=== PATIENT | female | born 1935 | race African-American/Black ===

== ENCOUNTER 2024-04-04 14:29 | Inpatient (IN) | payer OTHER, MEDICARE ==
[~2024-04-04] VITALS: Ht 166.6 cm; Wt 85.7 kg
[2024-04-04] MEDS: METHYLPREDNISOLONE SOD SUCC 125MG/2ML (ACT-O-VIAL) IV STA (15:26)
[2024-04-04] MEDS: SODIUM CHLORIDE 0.9% (SEPSIS BOLUS) IV ONE (15:27)
[2024-04-04] MEDS: PIPERACILLIN/TAZO 3.375G/50ML 50 ML IV STA (15:33)
[2024-04-04 15:50] LABS: HEMOGLOBIN. 11.2 g/dL (12.0-16.0); MEAN CORPUSCULAR HEMOGLOBIN 27.2 pg (28.0-32.0); MEAN CORPUSCULAR HGB CONC 31.9 g/dL (31.0-37.0); MEAN CORPUSCULAR VOLUME 85.5 fL (81.0-99.0); PLATELET 213 x1000/uL (130-400); RED CELL DISTRIBUTION WIDTH 14.6 % (11.6-14.6); WHITE BLOOD COUNT 13.7 x1000/uL (4.5-11.0)
[2024-04-04 15:51] LABS: D-DIMER 2.54 mg/L FEU (<0.50); INR 0.9; PROTHROMBIN TIME 10.6 sec (9.6-11.0)
[2024-04-04 15:53] LABS: CHLORIDE 101 mEq/L (98-107); POTASSIUM 4.7 mEq/L (3.5-5.1); SODIUM 136 mEq/L (136-145)
[2024-04-04 15:54] LABS: CALCIUM 9.9 mg/dL (8.7-10.4); CARBON DIOXIDE 20 mEq/L (21-32); DIFFERENTIAL COMMENT 1
[2024-04-04 15:59] LABS: CREATININE 1.9 mg/dL (0.6-1.0); UREA NITROGEN BLOOD 59 mg/dL (9-23)
[2024-04-04 16:01] LABS: ALANINE AMINOTRANSFERASE 14 IU/L (10-49); ALBUMIN 3.9 g/dL (3.2-4.8); ASPARTATE AMINOTRANSFERASE 15 IU/L (<34); BILIRUBIN DIRECT 0.3 mg/dL (<=3.0); BILIRUBIN TOTAL 0.6 mg/dL (0.1-1.0); LACTIC ACID 2.6 mmol/L (0.4-2.0); PROTEIN TOTAL 7.4 g/dL (6.0-8.3); TROPONIN I HIGH SENSITIVITY 26 ng/L (3.0-34)
[2024-04-04 16:16] LABS: GLUCOSE 675 mg/dL (70-105)
[2024-04-04 16:35] VITALS: PULSE 107; RESP 24; O2SAT 97
[2024-04-04 17:29] LABS: BG SAMPLE SITE RIGHT RADIAL; BG VENT MODE NASAL CANNULA
[2024-04-04 17:30] LABS: BG BASE EXCESS -6.6 mmol/L (-2.0-3.0); BG CARBOXYHEMOGLOBIN 0.4 % (0.5-1.5); BG FRACTION INSPIRED OXYGEN 28; BG HCO3 ACT 18.3 mmol/L (21.0-28.0); BG METHEMOGLOBIN 0.3 % (0.5-1.5); BG OXYHEMOGLOBIN 94.3 % (94.0-98.0); BG PCO2 34.6 mmHg (32.0-45.0); BG PH 7.341 (7.350-7.450); BG PO2 81.9 mmHg (83.0-108.0); BG TOTAL HEMOGLOBIN 11.8 g/dL (12.0-16.0)
[2024-04-04] MEDS: INSULIN LISPRO 100 UNITS/ML SUBCUT STA (18:12)
[2024-04-04] MEDS ORDERED: DEXTROSE 50% WATER 50ML SYRINGE IV PRN (18:15)
[2024-04-04] MEDS: VANCOMYCIN 1.5GM/250ML 250 ML IV SCH (18:33)
[2024-04-04 19:09] LABS: TROPONIN I HIGH SENSITIVITY 30 ng/L (3.0-34)
[2024-04-04 21:02] LABS: PLATELET ESTIMATE NORMAL
[2024-04-04] MEDS: BLOOD SUGAR DIAGNOSTIC STRIP TEST SCH (21:14)
[2024-04-04] MEDS: INSULIN LISPRO 100 UNITS/ML SUBCUT NR (21:29)
[2024-04-04] MEDS: PANTOPRAZOLE SODIUM 40 MG/VIAL IV SCH (23:00)
[2024-04-04] MEDS: ENOXAPARIN 30MG/0.3ML SYR SUBCUT SCH (23:02)
[2024-04-04] MEDS ORDERED: DEXTROSE 50% WATER 25ML (12.5GM) IV PRN (23:15)
[2024-04-04] MEDS ORDERED: DEXTROSE 50% WATER 50ML (25GM) IV PRN (23:15)
[2024-04-04] MEDS: INSULIN REGULAR 100U/100ML PMX 100 ML IV SCH (23:32)
[2024-04-04 23:53] LABS: CLARITY URINE CLEAR (CLEAR); COLOR URINE YELLOW (YELLOW); GLUCOSE URINE 3+ (NEGATIVE); KETONES URINE TRACE (NEGATIVE); LEUKOCYTE ESTERASE URINE NEGATIVE (NEGATIVE); NITRITE URINE NEGATIVE (NEGATIVE); OCCULT BLOOD URINE TRACE (NEGATIVE); PROTEIN URINE NEGATIVE (NEGATIVE); SPECIFIC GRAVITY URINE 1.035 (1.005-1.030); UROBILINOGEN URINE 0.2 E.U./dL (0.2-1.0)
[2024-04-04] MEDS ORDERED: IOHEXOL-350 100 ML BOTTLE ONE (23:55)
[2024-04-04] MEDS: PIPERACILLIN/TAZO 3.375G/50ML 50 ML IV SCH (23:56)
[2024-04-05] VITALS (47 sets, daily range): BP systolic 116–162; BP diastolic 52–77; PULSE 87–113; RESP 19–31; TEMP 36.61404–37.2252; O2SAT 92–100
[2024-04-05] MEDS: BLOOD SUGAR DIAGNOSTIC STRIP TEST SCH ×3 (00:02→21:17)
[2024-04-05] MEDS: ALBUTEROL (0.083%) 2.5MG/3ML NEB HHN SCH (00:04)
[2024-04-05] MEDS: IPRATROPIUM BROMIDE (0.02%) 0.5MG/2.5ML NEB HHN STA (00:04)
[2024-04-05] MEDS ORDERED: DEXTROSE 50% WATER 50ML SYRINGE IV PRN ×2 (00:30→19:15)
[2024-04-05] MEDS: DEXT 5%/0.9% NACL 1,000 ML IV SCH (00:30)
[2024-04-05] MEDS ORDERED: BLOOD SUGAR DIAGNOSTIC STRIP TEST PRN (00:30)
[2024-04-05] MEDS ORDERED: MAGNESIUM 2 G PREMIX 50 ML IV PRN (00:30)
[2024-04-05] MEDS ORDERED: SODIUM PHOSPHATE 15 MMOL in SODIUM CHLORIDE 0.9% 245 ML IV PRN (00:30)
[2024-04-05] MEDS ORDERED: POTASSIUM CHLORIDE 40 MEQ in SODIUM CHLORIDE 0.9% 230 ML IV PRN (00:30)
[2024-04-05] MEDS: SODIUM CHLORIDE 0.9% 1,000 ML IV SCH (01:07)
[2024-04-05 01:22] LABS: POTASSIUM 3.5 mEq/L (3.5-5.1)
[2024-04-05 01:23] LABS: CALCIUM 9.9 mg/dL (8.7-10.4)
[2024-04-05 01:28] LABS: CREATININE 1.7 mg/dL (0.6-1.0)
[2024-04-05] MEDS: IPRATROPIUM/ALBUTEROL 0.5-3(2.5)MG/3ML NEB NEB SCH (01:52)
[2024-04-05 03:26] LABS: RBC URINE 0-2 /hpf (0-2); SQUAMOUS EPITHELIAL CELL URINE FEW /lpf (RARE/1+); WBC URINE 0-2 /hpf (0-2)
[2024-04-05 03:33] LABS: BACTERIA URINE TRACE
[2024-04-05 04:16] LABS: BG BASE EXCESS -2.1 mmol/L (-2.0-3.0); BG CARBOXYHEMOGLOBIN 0.4 % (0.5-1.5); BG FRACTION INSPIRED OXYGEN 28; BG HCO3 ACT 23.3 mmol/L (21.0-28.0); BG OXYHEMOGLOBIN 96.6 % (94.0-98.0); BG PCO2 42.3 mmHg (32.0-45.0); BG PH 7.359 (7.350-7.450); BG PO2 91.3 mmHg (83.0-108.0); BG TOTAL HEMOGLOBIN 11.6 g/dL (12.0-16.0)
[2024-04-05] MEDS: ASPIRIN 81MG EC TABLET PO SCH (10:31)
[2024-04-05] MEDS: FUROSEMIDE 40MG/4ML VIAL IV SCH (10:32)
[2024-04-05 10:59] LABS: HEMATOCRIT. 32.1 % (36.0-48.0); HEMOGLOBIN. 10.2 g/dL (12.0-16.0); MEAN CORPUSCULAR HEMOGLOBIN 26.9 pg (28.0-32.0); MEAN CORPUSCULAR HGB CONC 31.8 g/dL (31.0-37.0); MEAN CORPUSCULAR VOLUME 84.8 fL (81.0-99.0); MEAN PLATELET VOLUME 9.6 fl (7.4-10.4); PLATELET 194 x1000/uL (130-400); RED BLOOD CELL COUNT 3.78 mill/uL (4.2-5.4); RED CELL DISTRIBUTION WIDTH 14.2 % (11.6-14.6); WHITE BLOOD COUNT 14.5 x1000/uL (4.5-11.0)
[2024-04-05 11:07] LABS: DIFFERENTIAL COMMENT 1
[2024-04-05 11:19] LABS: CARBON DIOXIDE 22 mEq/L (21-32); CHLORIDE 116 mEq/L (98-107); SODIUM 149 mEq/L (136-145)
[2024-04-05 11:20] LABS: CALCIUM 9.4 mg/dL (8.7-10.4)
[2024-04-05 11:24] LABS: CREATININE 1.3 mg/dL (0.6-1.0); GLUCOSE 317 mg/dL (70-105)
[2024-04-05 11:25] LABS: UREA NITROGEN BLOOD 42 mg/dL (9-23)
[2024-04-05 11:27] LABS: PHOSPHORUS 2.7 mg/dL (2.5-4.9)
[2024-04-05 13:22] LABS: TROPONIN I HIGH SENSITIVITY 96 ng/L (3.0-34)
[2024-04-05 16:34] LABS: CARBON DIOXIDE 23 mEq/L (21-32); CHLORIDE 118 mEq/L (98-107); POTASSIUM 3.6 mEq/L (3.5-5.1); SODIUM 151 mEq/L (136-145)
[2024-04-05 16:35] LABS: CALCIUM 9.6 mg/dL (8.7-10.4)
[2024-04-05 16:40] LABS: CREATININE 1.2 mg/dL (0.6-1.0); GLUCOSE 174 mg/dL (70-105); UREA NITROGEN BLOOD 40 mg/dL (9-23)
[2024-04-05 16:42] LABS: PHOSPHORUS 2.2 mg/dL (2.5-4.9)
[2024-04-05] MEDS: KCL 20MEQ/100ML PREMIX 100 ML IV PRN (16:46)
[2024-04-05] MEDS: OSELTAMIVIR 30MG CAPSULE PO SCH (17:25)
[2024-04-05] MEDS: INSULIN LISPRO 100 UNITS/ML SUBCUT SCH (21:00)
[2024-04-05 21:49] LABS: CHLORIDE 118 mEq/L (98-107); POTASSIUM 3.8 mEq/L (3.5-5.1); SODIUM 151 mEq/L (136-145)
[2024-04-05 21:50] LABS: CARBON DIOXIDE 23 mEq/L (21-32)
[2024-04-05 21:57] LABS: PHOSPHORUS 2.8 mg/dL (2.5-4.9)
[2024-04-05] MEDS ORDERED: CLONIDINE 0.1MG TABLET PO PRN (22:45)
[2024-04-05] MEDS: LOSARTAN 100 MG TABLET PO SCH (23:02)
[2024-04-06] VITALS (21 sets, daily range): BP systolic 122–161; BP diastolic 58–80; PULSE 84–110; RESP 16–29; TEMP 36.61404–37.16964; O2SAT 89–100
[2024-04-06 00:54] LABS: CHLORIDE 118 mEq/L (98-107); POTASSIUM 4.2 mEq/L (3.5-5.1); SODIUM 150 mEq/L (136-145)
[2024-04-06 00:55] LABS: CARBON DIOXIDE 25 mEq/L (21-32)
[2024-04-06 01:03] LABS: PHOSPHORUS 2.9 mg/dL (2.5-4.9)
[2024-04-06 06:17] LABS: POTASSIUM 4.4 mEq/L (3.5-5.1)
[2024-04-06 06:18] LABS: CALCIUM 9.6 mg/dL (8.7-10.4)
[2024-04-06 06:23] LABS: CREATININE 1.4 mg/dL (0.6-1.0)
[2024-04-06 09:08] LABS: PLATELET ESTIMATE NORMAL
[2024-04-06 10:51] LABS: HEMATOCRIT. 37.2 % (36.0-48.0); HEMOGLOBIN. 11.6 g/dL (12.0-16.0); MEAN CORPUSCULAR HEMOGLOBIN 26.8 pg (28.0-32.0); MEAN CORPUSCULAR HGB CONC 31.2 g/dL (31.0-37.0); MEAN CORPUSCULAR VOLUME 85.9 fL (81.0-99.0); MEAN PLATELET VOLUME 9.5 fl (7.4-10.4); PLATELET 205 x1000/uL (130-400); RED BLOOD CELL COUNT 4.33 mill/uL (4.2-5.4); RED CELL DISTRIBUTION WIDTH 14.9 % (11.6-14.6); WHITE BLOOD COUNT 20.8 x1000/uL (4.5-11.0)
[2024-04-06 11:05] LABS: DIFFERENTIAL COMMENT 1
[2024-04-06] MEDS: VANCOMYCIN 1GM/200ML PMX (BAXTER) IV SCH (12:26)
[2024-04-06 14:15] LABS: PLATELET ESTIMATE NORMAL
[2024-04-06] MEDS: PIPERACILLIN/TAZO 3.375G/50ML 50 ML IV SCH (17:26)
[2024-04-06] MEDS: AZITHROMYCIN 500 MG TABLET PO SCH (17:26)
[2024-04-07] VITALS (15 sets, daily range): BP systolic 125–151; BP diastolic 51–69; PULSE 95–107; RESP 17–27; TEMP 36.28068–37.2252; O2SAT 94–99
[2024-04-07] MEDS ORDERED: ONDANSETRON HCL 4MG/2ML INJ IV PRN
[2024-04-07 09:02] LABS: HEMATOCRIT. 33.2 % (36.0-48.0); HEMOGLOBIN. 10.7 g/dL (12.0-16.0); MEAN CORPUSCULAR HGB CONC 32.2 g/dL (31.0-37.0); MEAN PLATELET VOLUME 9.6 fl (7.4-10.4); PLATELET 198 x1000/uL (130-400); RED BLOOD CELL COUNT 3.95 mill/uL (4.2-5.4); RED CELL DISTRIBUTION WIDTH 14.5 % (11.6-14.6); WHITE BLOOD COUNT 14.3 x1000/uL (4.5-11.0)
[2024-04-07 09:11] LABS: POTASSIUM 4.1 mEq/L (3.5-5.1)
[2024-04-07 09:12] LABS: CALCIUM 9.2 mg/dL (8.7-10.4)
[2024-04-07 09:13] LABS: DIFFERENTIAL COMMENT 1
[2024-04-07 09:17] LABS: CREATININE 1.2 mg/dL (0.6-1.0)
[2024-04-07 12:03] LABS: PLATELET ESTIMATE NORMAL
[2024-04-07] MEDS: SODIUM CHLORIDE 0.9% 1,000 ML IV ONE (16:53)
[2024-04-07] MEDS: ENOXAPARIN 40MG/0.4ML SYR SUBCUT SCH (21:06)
[2024-04-08] VITALS (17 sets, daily range): BP systolic 85–134; BP diastolic 47–70; PULSE 87–114; RESP 17–32; TEMP 36.3918–36.9474; O2SAT 95–99
[2024-04-08] MEDS: OSELTAMIVIR 30MG CAPSULE PO SCH (05:38)
[2024-04-08 07:42] LABS: POTASSIUM 3.8 mEq/L (3.5-5.1)
[2024-04-08 07:43] LABS: CALCIUM 8.9 mg/dL (8.7-10.4)
[2024-04-08 07:48] LABS: CREATININE 1.1 mg/dL (0.6-1.0)
[2024-04-08 07:52] LABS: HEMATOCRIT. 34.9 % (36.0-48.0); HEMOGLOBIN. 11.1 g/dL (12.0-16.0); MEAN CORPUSCULAR HEMOGLOBIN 26.9 pg (28.0-32.0); MEAN CORPUSCULAR HGB CONC 31.8 g/dL (31.0-37.0); MEAN CORPUSCULAR VOLUME 84.6 fL (81.0-99.0); MEAN PLATELET VOLUME 9.7 fl (7.4-10.4); PLATELET 187 x1000/uL (130-400); RED BLOOD CELL COUNT 4.12 mill/uL (4.2-5.4); WHITE BLOOD COUNT 12.9 x1000/uL (4.5-11.0)
[2024-04-08 08:08] LABS: DIFFERENTIAL COMMENT 1
[2024-04-08] MEDS: FAMOTIDINE 20MG/2ML VIAL IV SCH (09:03)
[2024-04-08 11:35] LABS: BG BASE EXCESS 3.2 mmol/L (-2.0-3.0); BG DEOXYHEMOGLOBIN 1.4 % (0.0-5.0); BG FRACTION INSPIRED OXYGEN 28; BG HCO3 ACT 26.7 mmol/L (21.0-28.0); BG METHEMOGLOBIN 0.3 % (0.5-1.5); BG OXYGEN SATURATION 98.6 % (94.0-98.0); BG OXYHEMOGLOBIN 98.3 % (94.0-98.0); BG PCO2 36.8 mmHg (32.0-45.0); BG PH 7.479 (7.350-7.450); BG PO2 109.8 mmHg (83.0-108.0); BG SAMPLE SITE LEFT RADIAL; BG TOTAL HEMOGLOBIN 11.9 g/dL (12.0-16.0); BG VENT MODE NASAL CANNULA
[2024-04-08] MEDS: IPRATROPIUM/ALBUTEROL 0.5-3(2.5)MG/3ML NEB HHN PRN (12:14)
[2024-04-08 13:38] LABS: PLATELET ESTIMATE NORMAL
[2024-04-08] MEDS: ACETAMINOPHEN 325MG TABLET PO PRN (15:34)
[2024-04-09] VITALS (15 sets, daily range): BP systolic 112–144; BP diastolic 44–118; PULSE 99–114; RESP 17–28; TEMP 36.28068–37.33632; O2SAT 94–100
[2024-04-09] MEDS: THROAT LOZENGES-BENZOCAINE/MENTH/CETYLPYRD CL LOZENGES MM PRN (08:26)
[2024-04-09 08:40] LABS: HEMATOCRIT. 35.7 % (36.0-48.0); HEMOGLOBIN. 11.5 g/dL (12.0-16.0); MEAN CORPUSCULAR HEMOGLOBIN 27.1 pg (28.0-32.0); MEAN CORPUSCULAR HGB CONC 32.1 g/dL (31.0-37.0); MEAN CORPUSCULAR VOLUME 84.6 fL (81.0-99.0); MEAN PLATELET VOLUME 9.7 fl (7.4-10.4); PLATELET 193 x1000/uL (130-400); RED BLOOD CELL COUNT 4.22 mill/uL (4.2-5.4); WHITE BLOOD COUNT 10.6 x1000/uL (4.5-11.0)
[2024-04-09 08:46] LABS: DIFFERENTIAL COMMENT 1
[2024-04-09 09:03] LABS: CALCIUM 9.3 mg/dL (8.7-10.4)
[2024-04-09 09:04] LABS: POTASSIUM 3.7 mEq/L (3.5-5.1)
[2024-04-09 09:09] LABS: CREATININE 1.2 mg/dL (0.6-1.0)
[2024-04-09 17:21] LABS: PLATELET ESTIMATE NORMAL
[2024-04-09] MEDS: LEVOFLOXACIN 500MG TABLET PO SCH (18:41)
[2024-04-10] VITALS (14 sets, daily range): BP systolic 113–137; BP diastolic 42–65; PULSE 93–122; RESP 20–28; TEMP 36.28068–37.2252; O2SAT 94–100
[2024-04-11] VITALS (12 sets, daily range): BP systolic 104–139; BP diastolic 44–62; PULSE 97–112; RESP 18–50; TEMP 36.3918–37.28076; O2SAT 96–100
[2024-04-12] VITALS (13 sets, daily range): BP systolic 102–121; BP diastolic 36–60; PULSE 96–109; RESP 15–26; TEMP 36.33624–36.55848; O2SAT 92–100
[2024-04-12 09:24] LABS: HEMATOCRIT 30.6 % (36.0-48.0); HEMOGLOBIN 9.8 g/dL (12.0-16.0); MEAN CORPUSCULAR HEMOGLOBIN 26.8 pg (28.0-32.0); MEAN CORPUSCULAR VOLUME 83.6 fL (81.0-99.0); PLATELET 267 x1000/uL (130-400); RED BLOOD CELL COUNT 3.66 mill/uL (4.2-5.4); RED CELL DISTRIBUTION WIDTH 14.2 % (11.6-14.6); WHITE BLOOD COUNT 6.2 x1000/uL (4.5-11.0)
[2024-04-12 09:28] LABS: POTASSIUM 3.8 mEq/L (3.5-5.1)
[2024-04-12 09:29] LABS: CALCIUM 9.1 mg/dL (8.7-10.4)
[2024-04-12 09:34] LABS: CREATININE 1.1 mg/dL (0.6-1.0)
[2024-04-13] VITALS: BP 113/44; PULSE 98; RESP 21; TEMP 36.28068; O2SAT 100
[2024-04-13 04:00] VITALS: BP 105/44; PULSE 96; RESP 22; TEMP 36.22512; O2SAT 97
[2024-04-13 08:00] VITALS: BP 123/61; PULSE 97; RESP 30; TEMP 36.55848; O2SAT 100
[2024-04-13 12:01] VITALS: BP 127/49; PULSE 95; RESP 21; TEMP 36.33624
[2024-04-13 16:05] VITALS: BP 120/61; PULSE 99; RESP 21; TEMP 36.83628
[2024-04-13 20:00] VITALS: BP 117/42; PULSE 103; RESP 21; TEMP 36.72516
[2024-04-14] VITALS: BP 113/46; PULSE 95; RESP 23; TEMP 36.6696; O2SAT 100
[2024-04-14 04:00] VITALS: BP 107/49; PULSE 92; RESP 21; TEMP 36.3918; O2SAT 99
[2024-04-14 08:00] VITALS: BP 120/58; PULSE 95; RESP 16; TEMP 36.50292; O2SAT 100
[2024-04-14 12:00] VITALS: BP 136/57; PULSE 95; RESP 28; TEMP 36.44736; O2SAT 100
[2024-04-14 16:00] VITALS: BP 116/42; PULSE 98; RESP 22; TEMP 36.72516; O2SAT 98
[2024-04-14 20:00] VITALS: BP 123/54; PULSE 94; RESP 19; TEMP 36.61404; O2SAT 98
[2024-04-15] VITALS: BP 128/64; PULSE 89; RESP 19; TEMP 36.55848; O2SAT 97
[2024-04-15 04:00] VITALS: BP 136/57; PULSE 90; RESP 19; TEMP 36.3918; O2SAT 100
[2024-04-15 08:00] VITALS: BP 134/52; PULSE 85; RESP 18; TEMP 36.3918; O2SAT 100
[2024-04-15 12:00] VITALS: BP 133/48; PULSE 94; RESP 18; TEMP 35.72508; O2SAT 98
[2024-04-15 16:00] VITALS: BP 136/45; PULSE 97; RESP 18; TEMP 36.3918; TEMP 36.39180; O2SAT 100
[2024-04-15 17:03] VITALS: BP 136/46; PULSE 104; TEMP 97.7; O2SAT 97
== END 2024-04-15 18:19 | DRG 193 ==
LOC: EDBEDREQ 14:52 → ER 15:11 → EDBEDREQ 17:25 → EDBEDREQTM 17:25 → EDBEDREQSVC 20:17 → MICUNO 20:34 → EDBEDREQTM 21:03 → EDBEDREQSVC 23:38 → 5EST 04-06 19:15 → 6EST 04-14 16:10
PROVIDERS: ADMIT Internal Medicine; ATTEND Internal Medicine
DX: J10.00 Influenza due to other identified influenza virus with unspecified type of pneumonia (principal); E11.10 Type 2 diabetes mellitus with ketoacidosis without coma; J96.01 Acute respiratory failure with hypoxia; J44.1 Chronic obstructive pulmonary disease with (acute) exacerbation; I13.0 Hypertensive heart and chronic kidney disease with heart failure and stage 1 through stage 4 chronic kidney disease, or unspecified chronic kidney disease; N17.9 Acute kidney failure, unspecified; E87.0 Hyperosmolality and hypernatremia; J84.9 Interstitial pulmonary disease, unspecified; J44.0 Chronic obstructive pulmonary disease with (acute) lower respiratory infection; Z20.822 Contact with and (suspected) exposure to COVID-19; I50.9 Heart failure, unspecified; E11.65 Type 2 diabetes mellitus with hyperglycemia; L89.329 Pressure ulcer of left buttock, unspecified stage; L89.319 Pressure ulcer of right buttock, unspecified stage; R32 Unspecified urinary incontinence; N18.9 Chronic kidney disease, unspecified; E11.22 Type 2 diabetes mellitus with diabetic chronic kidney disease; E86.0 Dehydration; Z95.810 Presence of automatic (implantable) cardiac defibrillator
CPT/HCPCS: 36415; 36600; 71045; 71275; 80048; 80051; 80076; 80202; 81003; 82010; 82375; 82805; 82962; 83036; 83605; 83735; 83880; 83930; 84100; 84145; 84484; 85025; 85027; 85379; 86850; 86900; 87426; 87804; 93005; 93970; 94640; 97162; 97530; 99285; 99291; C1893; J1650; J1815; J1940; J2470; J2543; J2919; J3370; J3480; J3490; J7030; Q9967